=== PATIENT | female | born 1975 | race Caucasian/White ===

== ENCOUNTER → 2017-02-08 | Outpatient (CLI) | payer OTHER | LOC: BMCIMAGING 11:55 | PROVIDERS: ATTEND Family Medicine | DX: M79.89 Other specified soft tissue disorders (principal) ==

== ENCOUNTER 2017-06-18 07:08 | Observation (INO) | payer OTHER ==
[2017-06-18] MEDS ORDERED: NS 1,000 ML IV ONE (07:09)
[2017-06-18] MEDS ORDERED: HEPARIN 10,000 UNIT/10 ML MDV ONE (07:22)
[2017-06-18] MEDS ORDERED: BUPIVACAINE 0.5% 30 ML SDV ONE (07:22)
[2017-06-18] MEDS ORDERED: LIDOCAINE 1% 300 MG/30 ML SDV ONE (07:22)
[2017-06-18] MEDS ORDERED: ISOPROTERENOL HCL/D5W 0.2 MG/50 ML BAG IV ONE (07:22)
--- NOTE | 2017-06-18 07:37 | CPEKG ---
Heart Rate: 54 RR Interval: 1111 P-R Interval: 144 QRSD Interval: 90 QT Interval: 436 QTC Interval: 414 P [place]: 73 QRS [place]: 49 T Wave [place]: 9 EKG Severity - NORMAL ECG - EKG Impression: SINUS RHYTHM Electronically Signed By: Rashmi Toledo 18-Jun-2017 10:00:46
[2017-06-18 08:13] LABS: % IMMATURE GRANULYOCYTES 0.2 % (0.0-1.1); ABSOLUTE IMMATURE GRANULOCYTES 0.01 10^3/uL (0.00-0.10); ADD DIFF? NO; ADD MORPH? NO; ADD SCAN? NO; ATYPICAL LYMPHOCYTE FLAG 30 (0-99); FRAGMENT RBC FLAG 0 (0-99); HEMATOCRIT 42.1 % (38.0-47.0); HEMOGLOBIN 14.4 g/dL (12.6-16.3); LEFT SHIFT FLG 0 (0-99); LIPEMIA HEMOLYSIS FLAG 90 (0-99); MEAN CELL HEMOGLOBIN 30.3 pg (27.9-34.1); MEAN CELL HEMOGLOBIN CONCENTR. 34.2 g/dL (32.4-36.7); MEAN CELL VOLUME 88.4 fL (81.5-99.8); PLATELET CLUMPS FLAG 0 (0-99); PLATELET COUNT 268 10^3/uL (150-400); RED BLOOD CELL COUNT 4.76 10^6/uL (4.18-5.33); RED CELL DISTRIBUTION WIDTH 11.5 % (11.5-15.2)
[2017-06-18] MEDS ORDERED: MIDAZOLAM 2 MG/2 ML VIAL IVP ONE (08:17)
[2017-06-18] MEDS ORDERED: fentaNYL 100 MCG/2 ML INJ IVP PRN (08:18)
[2017-06-18] MEDS ORDERED: NALOXONE HCL 0.4 MG/ML INJ IVP PRN (08:18)
[2017-06-18] MEDS ORDERED: ACETAMINOPHEN 500 MG TAB PO PRN (08:18)
[2017-06-18] MEDS ORDERED: ALBUTEROL 3 ML DEYVIAL IH PRN (08:18)
[2017-06-18] MEDS ORDERED: ONDANSETRON 4 MG/2 ML VIAL IVP PRN ×2 (08:18→11:59)
[2017-06-18 08:21] LABS: INR 1.08 (0.83-1.16); PROTIME(PATIENT) 13.9 SEC (12.0-15.0)
[2017-06-18 08:22] LABS: APTT 25.8 SEC (23.0-38.0)
--- NOTE | 2017-06-18 08:26 | PDANEPAE ---
ANE History of Present Illness 41yo F for SVT Ablation ANE Past Medical History - Cardiovascular History Hx Arrhythmias: Yes - Pulmonary History Hx Asthma/Reactive Airway Disease: No Hx Sleep Apnea: No ANE Review of Systems Review of systems is: negative Review of Systems: - Exercise capacity METS (RN): 4 METS ANE Patient History - Allergies Allergies/Adverse Reactions: No Known Allergies Allergy (Verified 12/02/12 15:08) - Home Medications Home Medications: NK [No Known Home Meds] 06/18/17 [Last Taken Unknown] - Smoking Hx Smoking Status: Never smoked - Alcohol Use Alcohol Use: Occasionally ANE Labs/Vital Signs - Labs Result Diagrams: 06/18/17 08:00 06/18/17 08:00 - Vital Signs Blood Pressure: 114/80 O2 Sat (%): 99 Height: 157.48 cm Weight: 49.442 kg ANE Physical Exam - Airway Neck exam: FROM Mallampati Score: Class 2 - Pulmonary Pulmonary: clear to auscultation - Cardiovascular Cardiovascular: regular rate and rhythym - ASA Status ASA Status: I ANE Anesthesia Plan Anesthesia Plan: general endotracheal anesthesia
[2017-06-18 08:28] LABS: ANION GAP 13 mEq/L (8-16); CALCIUM 9.5 mg/dL (8.5-10.4); CARBON DIOXIDE 23 mEq/l (22-31); CHLORIDE 103 mEq/L (97-110); CREATININE 0.7 mg/dL (0.6-1.0); GLOMERULAR FILTRATION RATE > 60; GLUCOSE 82 mg/dL (70-100); POTASSIUM 4.7 mEq/L (3.5-5.2); SODIUM 139 mEq/L (134-144)
[2017-06-18] MEDS ORDERED: PROPOFOL 200 MG/20 ML VIAL ONE (08:33)
[2017-06-18] MEDS ORDERED: fentaNYL 100 MCG/2 ML INJ ONE (08:34)
[2017-06-18] MEDS ORDERED: ROCURONIUM 50 MG/5 ML VIAL ONE ×2 (08:35→10:06)
[2017-06-18] MEDS ORDERED: epHEDrine SULFATE 10 MG/ML SYR ONE ×2 (08:36→09:14)
[2017-06-18] MEDS ORDERED: PHENYLEPHRINE HCL 100 MCG/ML SYR ONE (08:36)
--- NOTE | 2017-06-18 08:48 | PDHPUP ---
History & Physical Update H&P update statement: This history and physical update is based on an assessment of the patient which was completed after admission or registration (within 24 hours), but prior to the surgery/procedure. H&P update: H&P reviewed & patient examined, no change in patient's condition since H&P completed
[2017-06-18] MEDS ORDERED: DEXAMETHASONE 4 MG/ML VIAL ONE ×2 (09:12)
[2017-06-18] MEDS ORDERED: ONDANSETRON 4 MG/2 ML VIAL ONE (09:12)
[2017-06-18] MEDS ORDERED: SUGAMMADEX SODIUM 200 MG/2 ML VIAL IVP ONE (11:49)
[2017-06-18] MEDS ORDERED: ACETAMINOPHEN 325 MG TAB PO PRN (11:59)
[2017-06-18] MEDS ORDERED: OXYCODONE/APAP 5/325 TAB PO PRN (11:59)
--- NOTE | 2017-06-18 11:59 | EPPROC ---
Electrophysiology Procedure Note: ELECTROPHYSIOLOGIC STUDY AND CATHETER MEDIATED ABLATION OF SLOW/FAST AV KEYON REENTRY TACHYCARDIA PROCEDURES PERFORMED: 78884-26 EP evaluation with RA/RV/LA pace/record, with arrhythmia induction 95271-83 EP evaluation with RA/RV pace record, insert/reposition catheter, with arrhythmia induction 61607 Intracardiac catheter ablation, SVT arrhythmogenic focus 76239 3D mapping Fluoroscopy INDICATION: Palpitations terminated with vagal maneuvers PROCEDURE: Catheters & Anesthesia: The patient arrived in the Electrophysiology Laboratory in the fasting state. The right clavicular region, right groin, and left groin area were prepped and draped in the usual sterile manner. Anesthesiologist Dr. Ryann Caceres administered general anesthesia. Appropriate non-invasive blood pressure, pulse oximetry and end-tidal CO2 monitoring was established. All catheters were placed percutaneously using the modified Seldinger technique , and advanced into position under fluoroscopic guidance. One #6 [place]og[place]ese hexapolar non-deflectable electrode catheter was inserted into the right atrial appendage via the left femoral vein (2mm spacing; except the proximal ring which was 25cm from the tip used for unipolar recordings). One #7 [place]ese deflectable octapolar electrode catheter was advanced to the His-bundle position via the left femoral vein (2mm spacing). One #7 [place] deflectable quadrapolar catheter was advanced to the anteroseptal right ventricle via the right femoral vein. One #7 [place] deflectable catheter with 10 pairs of electrodes was placed via the right femoral vein into the coronary sinus. Heparin 3000 U was given. Programmed stimulation was performed from the right atrium, right ventricle and coronary sinus (left atrium). Parahisian pacing demonstrated constant H-A interval with changing V-A intervals and stimulus-A intervals during capture and loss of capture of proximal RBB proving retrograde conduction over AV node. AVNRT was induced easily during infusion of isoproterenol 1 mcg/min. Ventricular extrastimuli delivered during tachycardia without altering antegrade His bundle activation did not advance next atrial potential, indicating that the tachycardia was not utilizing an accessory pathway for retrograde conduction. VA interval was 10 ms. Post entrainment of the tachycardia from the ventricle, there was VAHV response. Mapping of the right atrium and coronary sinus during AVNRT identified earliest atrial activation above the tendon of Diamond at a level slightly posterior to the level of the His bundle, consistent with retrograde conduction over the fast AV keyon pathway. A #8 [place]ogolese deflectable quadrapolar electrode catheter (2mm-5mm-2mm spacing) with 4 mm tip electrode and sensor for the 3D mapping Carto system was advanced to the right atrium. 3 D mapping of the inter-atrial septum and coronary sinus was performed and location of the AV node was marked. CS had funnel shaped ostium. A SL2 sheath was used. RF applications were delivered to the region between the tricuspid annulus and the coronary sinus ostium, at the level of the upper edge of the coronary sinus ostium. Radiofrequency applications were also delivered along the roof of the proximal coronary sinus. Junctional rhythm occurred during all of the RF applications. AVNRT was still inducible 6 mm cryo catheter was placed and cryolesions delivered to the proximal CS and midseptal tricuspid annulus. Programmed stimulation was continued post ablation at baseline and during graded doses of isoproterenol upto 2mcg/min. Sustained AVNRT was not inducible. There were no echo beats. The catheters were removed. The long sheath was changed to a short 9 Fr sheath. The patient was transferred to the cardiovascular holding area in stable condition. Vascular access sheaths were removed in the holding area. There were no apparent complications. Results: A. Spontaneous Intervals: Pre ablation SCL 1065 ms AH 65 ms HV 40 ms Post ablation SCL 970 ms AH 60 ms HV 40 ms B. Antegrade AV keyon function (decremental pacing) Pre ablation FPERP 450 ms SPERP 440 ms WBB CL 430 ms (AH jump from 180 ms to 300 ms at FPERP) Post ablation FPERP 360 ms WBB CL 350 ms C. Retrograde AV keyon function (decremental pacing) Pre ablation FPERP 430 ms WBB CL 420 ms D. Arrhythmias: Sustained slow/fast AVNRT Cycle length 340 ms, AH interval 300 ms, MCNEIL interval 40 ms VA interval 10 ms CONCLUSIONS 1. 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 ( Slow/fast AVNRT). 2. Successful ablation (RF + cryo) of the slow AV keyon pathway with elimination of 1:1 antegrade conduction over the slow AV keyon pathway, all retrograde conduction over the slow AV keyon pathway and the inducibility of AVNRT. 3. No complications. Patient Problems: Problems Problem Status Onset Supraventricular tachycardia Acute
--- NOTE | 2017-06-18 12:30 | CPEKG ---
Heart Rate: 80 RR Interval: 750 P-R Interval: 136 QRSD Interval: 94 QT Interval: 416 QTC Interval: 480 P [place]: 75 QRS [place]: 34 T Wave [place]: -36 EKG Severity - BORDERLINE ECG - EKG Impression: SINUS RHYTHM EKG Impression: BORDERLINE T ABNORMALITIES, INFERIOR LEADS Electronically Signed By: Rashmi Toledo 18-Jun-2017 12:31:47
--- NOTE | 2017-06-18 12:40 | POSTANESTH ---
Post Anesthetic Evaluation Cardiovascular Status: Normal, Stable Respiratory Status: Normal, Stable Level of Consciousness/Mental Status: Can Participate in Eval, Alert and Oriented Pain Control: Adequate, Prn Tx Ordered Nausea/Vomiting Control: Adequate, Prn Tx Ordered Complications Possibly Related to Anesthesia: None Noted
[2017-06-18 20:03] VITALS: RESP 16
[2017-06-18 23:56] VITALS: TEMP 98.2
[2017-06-19 04:18] VITALS: O2SAT 98
[2017-06-19 05:53] LABS: % IMMATURE GRANULYOCYTES 0.5 % (0.0-1.1); ABSOLUTE IMMATURE GRANULOCYTES 0.06 10^3/uL (0.00-0.10); ADD DIFF? NO; ADD MORPH? NO; ADD SCAN? NO; ATYPICAL LYMPHOCYTE FLAG 0 (0-99); FRAGMENT RBC FLAG 0 (0-99); HEMATOCRIT 37.5 % (38.0-47.0); HEMOGLOBIN 12.8 g/dL (12.6-16.3); LEFT SHIFT FLG 0 (0-99); LIPEMIA HEMOLYSIS FLAG 90 (0-99); MEAN CELL HEMOGLOBIN 30.1 pg (27.9-34.1); MEAN CELL HEMOGLOBIN CONCENTR. 34.1 g/dL (32.4-36.7); MEAN CELL VOLUME 88.2 fL (81.5-99.8); MEAN PLATELET VOLUME 10.6 fL (8.7-11.7); PLATELET CLUMPS FLAG 0 (0-99); PLATELET COUNT 245 10^3/uL (150-400); RED BLOOD CELL COUNT 4.25 10^6/uL (4.18-5.33); RED CELL DISTRIBUTION WIDTH 11.5 % (11.5-15.2)
[2017-06-19 06:03] LABS: INR 1.15 (0.83-1.16); PROTIME(PATIENT) 14.6 SEC (12.0-15.0)
[2017-06-19 06:06] LABS: ANION GAP 12 mEq/L (8-16); CALCIUM 9.5 mg/dL (8.5-10.4); CARBON DIOXIDE 22 mEq/l (22-31); CHLORIDE 104 mEq/L (97-110); CREATININE 0.7 mg/dL (0.6-1.0); GLOMERULAR FILTRATION RATE > 60; GLUCOSE 93 mg/dL (70-100); POTASSIUM 3.9 mEq/L (3.5-5.2); SODIUM 138 mEq/L (134-144)
[2017-06-19 06:18] LABS: CREATINE KINASE-MB FRACTION 3.16 ng/mL (0.00-3.19); TROPONIN I 0.698 ng/mL (0.000-0.034)
--- NOTE | 2017-06-19 09:00 | CPEKG ---
Heart Rate: 78 RR Interval: 769 P-R Interval: 140 QRSD Interval: 94 QT Interval: 392 QTC Interval: 447 P [place]: 75 QRS [place]: 55 T Wave [place]: 7 EKG Severity - BORDERLINE ECG - EKG Impression: SINUS RHYTHM EKG Impression: PROBABLE LEFT ATRIAL ABNORMALITY Electronically Signed By: Mark Dobbins 19-Jun-2017 09:00:57
[2017-06-19] MEDS ORDERED: DOCUSATE SODIUM 100 MG CAP PO PRN (09:15)
[2017-06-19] MEDS ORDERED: NEBIVOLOL HCL 5 MG TAB PO SCH (09:15)
[2017-06-19 09:34] VITALS: BP 114/83; PULSE 73
--- NOTE | 2017-06-19 16:07 | ECHO ---
[email or web address] [address] [address] Main: [phone] Fax: Transthoracic Echocardiogram Name: ADRIANA MAYORGA MR#: [id number] Study Date: 06/19/2017 Study Time: 08:22 AM Date of : 1975 Age: 41 year(s) Height: 157.5 cm (62 in.) Weight: 49.44 kg (109 lb.) BSA: 1.48 m2 Gender: Female Examination: Echo Indication: F/U post EP study Image Quality: Contrast: Requested by: Mark Dobbins BP: 122 mmHg/73 mmHg Heart Rate: Rhythm: Indication: F/U post EP study Procedure Staff Supervisor Cd Area: Tiesha Sneed Reading Physician: Weston Carrasco Conclusions: ? Normal size left ventricle. ? Abnormal basal/mid septal motion consistent with conduction abnormality.. ? EF estimate is 60%. ? The mitral valve is normal in appearance. ? Trivial mitral valve regurgitation. ? The aortic valve is tri-leaflet and functions normally. ? Trivial tricuspid valve regurgitation. ? No pericardial effusion. Measurements: Chambers Valvular Assessment AV/MV Valvular Assessment TV/PV Normal Normal Normal Name Value Range Name Value Range Name Value Range Ao Dana (MM): 2.9 cm (2.2 cm-3.7 AV Vmax: 1.39 m/s (1 m/s-1.7 TR Vmax: 2.27 mm/s ( - ) cm) m/s) TR PGmax: 21 mmHg ( - ) IVSd (2D): 0.6 cm (0.6 cm-1.1 AV maxP mmHg ( - ) syst. PAP: 26 mmHg ( - ) cm) MV E Vmax: 0.58 cm/s ( - ) LVDd (2D): 5.4 cm (3.9 cm-5.3 MV A Vmax: 0.42 cm/s ( - ) cm) MV E/A: 1.38 ( - ) LVDs (2D): 3.4 cm (2.1 cm-4 cm) LVPWd (2D): 0.6 cm ( - ) LVEF (2D): 66 (>=54 %) Visual EF: 60 Continued Measurements: Chambers Valvular Assessment AV/MV Valvular Assessment TV/PV Name Value Name Value Name Value LA Area: 22.3 cm? MV E/E' Septal: 4.20 CVP (est.): 5 LA Volume: 69 ml MV E/E' Lateral: 3.40 Patient: ADRIANA MAYORGA Study Date: 06/19/2017 Page 1 of 2 08:22 AM LA Volume Index: 46.6 ml/m? Findings: Left Ventricle: Normal size left ventricle. Abnormal basal/mid septal motion consistent with conduction abnormality.. EF estimate is 60%. Right Ventricle: Normal size right ventricle. Left Atrium: The left atrium is normal in size. Right Atrium: The right atrium is normal in size. Mitral Valve: The mitral valve is normal in appearance. Trivial mitral valve regurgitation. Aortic Valve: The aortic valve is tri-leaflet and functions normally. Tricuspid Valve: The tricuspid valve appears normal. Trivial tricuspid valve regurgitation. Pulmonic Valve: The pulmonic valve is normal in appearance. Great Vessels: Pericardium: No pericardial effusion. (No Signature Object) Patient: ADRIANA MAYORGA Study Date: 06/19/2017 Page 2 of 2 08:22 AM D:_[id number]
--- NOTE | 2017-06-19 16:15 | ASDISCHSUM ---
Discharge Information Plan Status:Home with No Needs Medically Cleared to Leave:06/19/2017 Discharge Date:06/19/2017 10:50 AM CM D/C Disposition:Home, Routine, Self-Care ADT D/C Disposition:Home, Routine, Self-Care Projected Discharge Date:06/19/2017 12:00 AM Transportation at D/C: Discharge Delay Reason: Follow-Up Date:06/19/2017 12:00 AM Discharge Slot: Final Diagnosis: Placement Information Patient Contact Information Contact Name:CHANDLER Relationship: Address:[address] [place] [address] Work Phone: [place] Alternate Phone: [facility]/Zip Code:[place] [address] Email: Financial Information Financial Class:HMO and PPO Plans Primary Plan Desc:KEVIN RUCKER PPO Primary Plan Number:[id number] Secondary Plan Desc: Secondary Plan Number: Assessment Information Intervention Information
--- NOTE | 2017-06-19 19:52 | GDS ---
[f rep st] DISCHARGE SUMMARY DISCHARGE DIAGNOSES: 1. Supraventricular tachycardia. 2. Status post ablation for atrioventricular charity reentrant tachycardia. BRIEF HISTORY: This is a 41-year-old woman with a 5 year history of sudden onset of palpitations jerod t have terminated with Valsalva maneuver. She had reported heart rates up to 200 beats per minute. She cannot tolerate medications due to low blood pressure. Event monitor showed nonsustained wide-co mplex tachycardia. HOSPITAL COURSE: The patient underwent ablation of AVNRT by Dr. Dobbins. RF applications to the region between the tricuspid anulus, and coronary sinus, and along the roof of the coronary sinus were done. AVNRT was still inducible after this. Cryocatheter was used to deliver cryolesions to the proximal coronary sinus and midseptal tricuspid anulus areas. There was no inducible AVNRT after the additio n of the cryoablation. Ablation done was of the slow AV charity pathway. During the night she did exp erience SVT up to 157 beats per minute. This was rather brief, however, the remaining of the night s he did have short episodes of palpitations. Most of these were not recorded on the alarm history of telemetry because they were below the detection rate of 150 beats per minute. On exam this morning, she did have increased heart rate up to 130 beats per minute for less than a mi nute. 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 Telem etry monitor shows atrial tachycardia, which was reviewed with Dr. Dobbins. Likely related to the amount of ablation that was done. The patient was started on low-dose Bystolic 2.5 mg. She denies any sara rtness of breath, chest discomfort, pain at her groin sites or in her legs. TESTING DONE: EKG demonstrates sinus rhythm without ST-T wave changes. Echocardiogram demonstrates normal ejection fraction of 60% with no pericardial effusion. LABS: WBCs 12.18, hemoglobin 12.8, hematocrit 37.5, platelets 245, PT is 14.6, INR is 1.15, sodium 1 38, potassium 3.9, chloride 104, bicarb 22, BUN 13, creatinine 0.7, glucose 93. CK 63, CK-MB 3.16 tr oponin is 0.698, which is elevated and to be expected post ablation. PHYSICAL EXAM: VITAL SIGNS: Blood pressure is 116/74, pulse is 70, respirations 16, temperature is 36.8. GENERAL: She is alert and oriented, slightly anxious sitting up in bed, in no acute distress. CARDIAC: Regular rate, rhythm without murmur, rub, or gallop. She did have tachycardia on exam br iefly. LUNGS: Clear to auscultation. ABDOMEN: Soft and nontender. Groin sites are without bleedi ng or hematoma. EXTREMITIES: No lower extremity discoloration or edema. Bilateral +2 pedal pulses. DISCHARGE INSTRUCTIONS: Postablation groin precautions were reviewed with patient and , inclu ding no vigorous exercise or lifting over 10 pounds for 1 week, as well as getting up to walk every 4 5 minutes if sitting for long periods for the next 6 weeks. DISCHARGE MEDICATIONS: Please see discharge medication reconciliation. She will take aspirin 81 mg for 6 weeks post ablation. She was started on Bystolic 2.5 mg daily. FOLLOWUP: She has a followup with Dr. Dobbins on July 02 at 4:00 p.m. /[id number]/MODL
--- NOTE | 2017-06-20 08:36 | CPEKG ---
Heart Rate: 116 RR Interval: 517 P-R Interval: 152 QRSD Interval: 94 QT Interval: 316 QTC Interval: 439 P [place]: 76 QRS [place]: 53 T Wave [place]: -43 EKG Severity - ABNORMAL ECG - EKG Impression: SINUS TACHYCARDIA EKG Impression: PROBABLE LEFT ATRIAL ABNORMALITY EKG Impression: NONSPECIFIC T ABNORMALITIES, INFERIOR LEADS Electronically Signed By: Mark Dobbins 20-Jun-2017 11:05:39
== END 2017-06-19 10:50 | disposition home or self-care (01) ==
LOC: FCATH 07:08 → F2W 11:54
PROVIDERS: ADMIT Internal Medicine Cardiovascular Disease; ATTEND Internal Medicine Cardiovascular Disease
DX: I47.1 Supraventricular tachycardia (principal)
CPT/HCPCS: 93005; 93306; 93613; 93621; 93623; 93653; C1730; C1732; G0378; C1731; C1733; C1893; J1100; J1644; J2250; J2370; J2405; J2704; J3010

== ENCOUNTER → 2017-07-14 | Outpatient (CLI) | payer OTHER | LOC: FIMAGING 12:03 | PROVIDERS: ATTEND Internal Medicine | DX: Z12.31 Encounter for screening mammogram for malignant neoplasm of breast (principal) | CPT/HCPCS: G0202 ==

== ENCOUNTER → 2018-07-15 | Outpatient (CLI) | payer OTHER | LOC: FIMAGING 12:15 | PROVIDERS: ATTEND Internal Medicine | DX: Z12.31 Encounter for screening mammogram for malignant neoplasm of breast (principal); Z80.3 Family history of malignant neoplasm of breast ==

== ENCOUNTER → 2018-12-11 | Outpatient (CLI) | payer OTHER | LOC: FIMAGING 09:21 | PROVIDERS: ATTEND Obstetrics & Gynecology Gynecology | DX: N63.11 Unspecified lump in the right breast, upper outer quadrant (principal) ==

== ENCOUNTER → 2018-12-30 | Outpatient (CLI) | payer OTHER ==
[~2018-12-30] MED LIST: BUPIVACAINE 0.5% 30 ML SDV ONE; LIDOCAINE 1% 300 MG/30 ML SDV ONE
== END ==
LOC: FIMAGING 07:29
PROVIDERS: ATTEND Obstetrics & Gynecology Gynecology
PROC: 0HBT3ZX Excision of Right Breast, Percutaneous Approach, Diagnostic (ICD-10-PCS; principal; 2018-12-30)
DX: N60.11 Diffuse cystic mastopathy of right breast (principal); N60.91 Unspecified benign mammary dysplasia of right breast